=== PATIENT | female | born 1980 | race Two or more races ===

== ENCOUNTER → 2024-04-20 | Outpatient (CLI) | payer OTHER | LOC: EDUNIT# 13:00 → M WHC 13:14 | PROVIDERS: ATTEND Student in an Organized Health Care Education/Training Program | DX: Z12.31 Encounter for screening mammogram for malignant neoplasm of breast (principal) ==

== ENCOUNTER → 2024-04-20 | Outpatient (CLI) | payer OTHER | LOC: M PLARAD 13:12 | PROVIDERS: ATTEND Pain Medicine Interventional Pain Medicine | DX: M25.511 Pain in right shoulder (principal) ==